=== PATIENT | female | born 1995 | race Caucasian/White ===

== ENCOUNTER 2021-03-18 11:10 | Emergency (ER) | payer BC, SELFPAY ==
[2021-03-18 11:20] VITALS: BP 124/89; PULSE 85; RESP 18; TEMP 36.8; O2SAT 100
--- NOTE | 2021-03-18 11:31 | ED.URI ---
HPI - URI/Sore Throat General Chief Complaint: Upper Respiratory Infection Stated Complaint: Sore Throat,Cough,Congestion,Sinus,Body Aches Time Seen by Provider: 03/18/21 11:30 Source: patient and RN notes reviewed Mode of arrival: ambulatory Limitations: no limitations History of Present Illness HPI Narrative: 25-year-old female presents with concern for 5-day history of sore throat, cough, nasal congestion, sinus pressure, body aches. Reports she has been fully vaccinated for Covid. Reports she was supposed to start a new job tomorrow. She has been taking DayQuil and NyQuil with some relief. She denies fever, nausea, vomiting, diarrhea, shortness of breath. MD elicited complaint: nasal congestion Related Data Home Medications Medication Instructions Recorded Confirmed atomoxetine 40 mg PO DAILY 03/18/21 03/18/21 norethindrone-e.estradiol-iron 1 tablet PO DAILY 03/18/21 03/18/21 [Tammy 24 Fe] sertraline 25 mg PO DAILY 03/18/21 03/18/21 Allergies Allergy/AdvReac Type Severity Reaction Status Date / Time No Known Allergies Allergy Verified 03/18/21 11:27 Review of Systems Review of Systems: CONSTITUTIONAL: Denies malaise, chills, sweats, or fever. EYES: Denies visual changes, redness, or discharge. ENT: Reports rhinorrhea, congestion, sinus pain, otalgia and sore throat. CARDIOVASCULAR: Denies chest pain, palpitations, or edema. RESPIRATORY: Reports cough. Denies dyspnea. GASTROINTESTINAL: Denies abdominal pain, nausea, vomiting, diarrhea SKIN: Denies rash or itching. MUSCULOSKELETAL: Reports myalgia. NEUROLOGIC: Denies headache. All systems reviewed & are unremarkable except as noted in HPI and below PMFSH Comments At time of signature, agree with nursing past medical, surgical, social and family history. There is no relevant family history pertinent to the presenting complaint Exam Narrative: GENERAL: Well-appearing, well-nourished, and in no acute distress. HEAD: Normocephalic EYES: PERRLA, conjunctivae clear ENT: Nares clear, turbinates edematous and erythematous, clear discharge. Mucous membranes moist. TM pearly pelaez with dull light reflex bilaterally; no tragal tenderness. Oropharynx erythematous without lesions. Tonsils enlarged and without exudate, no drooling, no hoarseness, no trismus, uvula midline. NECK: Supple. No lymphadenopathy CHEST: Clear to auscultation, breath sounds equal. No wheezing, rhonchi, rales, or stridor. No respiratory distress, speaks in full sentences. HEART: Regular rate and rhythm. No murmur heard. SKIN: Warm, dry, no rash. NEURO: Alert and oriented x3. PSYCH: Normal mood and affect Course Course Emergency Course: Patient is aware of diagnosis, understands and agrees to treatment plan. Anticipatory guidance given. Patient agrees to follow-up as directed and is aware of reasons to seek care at the emergency department. Portions of this record may have been created with voice recognition software Vital Signs Vital signs: Vital Signs Temperature 98.2 F 03/18/21 11:20 Pulse Rate 85 03/18/21 11:20 Respiratory Rate 18 03/18/21 11:20 Blood Pressure 124/89 03/18/21 11:20 Pulse Oximetry 100 03/18/21 11:20 Temperature 98.2 F 03/18/21 11:20 Pulse Rate 85 03/18/21 11:20 Respiratory Rate 18 03/18/21 11:20 Blood Pressure 124/89 03/18/21 11:20 Pulse Oximetry 100 03/18/21 11:20 Reviewed. MDM - URI/Sore Throat MDM Narrative Medical decision making narrative: Differential diagnosis considered: Stevens virus, strep pharyngitis, allergic rhinitis, upper respiratory tract infection, sinusitis, rhinosinusitis, nasopharyngitis. viral pharyngitis, otitis media, otitis externa, pneumonia, bronchitis, viral cough syndrome, viral syndrome, and influenza. Exam findings show no acute concerns or changes; patient is non-toxic appearing and is in no distress. Patient is appropriate for outpatient treatment and follow-up. Critical Care Time Critical Care Time
== END 2021-03-18 12:00 | disposition home or self-care (01) ==
PROVIDERS: Emergency Provider Nurse Practitioner; PCP Family Medicine
DX: J06.9 Acute upper respiratory infection, unspecified (principal); F41.9 Anxiety disorder, unspecified; F90.9 Attention-deficit hyperactivity disorder, unspecified type
CPT/HCPCS: 99213; G0463